=== PATIENT | female | born 1945 | race Caucasian/White ===

== ENCOUNTER 2020-08-04 08:15 | Outpatient (CLI) | payer MEDICARE, OTHER, SELFPAY | END 2020-08-04 08:16 | disposition home or self-care (01) | LOC: ANHCOVIDVC 08:15 | PROVIDERS: PCP Internal Medicine | DX: Z23 Encounter for immunization (principal) | CPT/HCPCS: 0001A; 91300 ==

== ENCOUNTER 2020-08-25 08:12 | Outpatient (CLI) | payer MEDICARE, OTHER, SELFPAY | END 2020-08-25 08:13 | LOC: ANHCOVIDVC 08:12 | PROVIDERS: PCP Internal Medicine | DX: Z23 Encounter for immunization (principal) | CPT/HCPCS: 0002A; 91300 ==

== ENCOUNTER 2022-08-14 10:45 | Outpatient (CLI) | payer MEDICARE, OTHER, SELFPAY ==
--- NOTE | ~2022-08-14 | XR_ITS ---
Lumbosacral Spine: AP and lateral views Clinical History: Pain Findings: The normal lordotic curve is maintained. The vertebral bodies and posterior elements are i ntact. The intervertebral disc spaces are preserved. Mild facet joint degenerative changes are prese nt throughout the lumbar spine. The sacroiliac joints are normally outlined. Impression: Facet joint degenerative change, as above. Reviewed, dictated and finalized at location M. Impression: Facet joint degenerative change, as above.
== END 2022-08-14 10:46 | disposition home or self-care (01) ==
PROVIDERS: PCP Internal Medicine; Visit Provider Internal Medicine
DX: M54.9 Dorsalgia, unspecified (principal)
CPT/HCPCS: 72100

== ENCOUNTER 2022-10-18 09:15 | Outpatient (CLI) | payer MEDICARE, OTHER, SELFPAY ==
--- NOTE | ~2022-10-18 | MR_ITS ---
MRI of the lumbar spine Clinical History: Back pain, radiculopathy Technique: Axial T2-weighted images, and sagittal T1-weighted, T2-weighted, and T2 fat-sat images wer e acquired. COMPARISON: 11/27/2005 Findings: There is no fracture or subluxation of the lumbar spine. Vertebral bodies maintain normal h eight and alignment. No suspicious bone marrow signal abnormality seen. At L1-L2, there is no disc bulge or herniation. There is minimal facet joint hypertrophy. No spinal c anal stenosis or neural foraminal narrowing. At L2-L3, there is no significant disc bulge or herniation. There is mild facet joint hypertrophy. No spinal canal stenosis or neural foraminal narrowing. At L3-L4, there is minimal disc bulge with mild facet arthropathy. No spinal canal stenosis or defini te neural foraminal narrowing. At L4-L5, there is disc bulge and facet arthropathy, with mild lateral recess stenosis, particularly on the left side. There is probable mild left neural foraminal narrowing and moderate right neural fo raminal narrowing. At L5-S1, there is mild disc bulge with moderate to advanced facet arthropathy. There is severe left neural foraminal narrowing. Right neural foramen preserved. No central canal stenosis. Paravertebral soft tissues are unremarkable. Impression: Severe left neural foraminal narrowing L5-S1. [id number] degenerative spondylosis at L4-L5, as detailed above. Reviewed, dictated and finalized at [facility]. Impression: Severe left neural foraminal narrowing L5-S1. [id number] degenerative spondylosis at L4-L5, as detailed above.
== END 2022-10-18 09:16 | disposition home or self-care (01) ==
PROVIDERS: PCP Internal Medicine; Visit Provider Internal Medicine
DX: M47.26 Other spondylosis with radiculopathy, lumbar region (principal)
CPT/HCPCS: 72148

== ENCOUNTER 2022-11-26 09:22 | Outpatient (CLI) | payer MEDICARE, OTHER, SELFPAY ==
--- NOTE | ~2022-11-26 | US_ITS ---
EXAMINATION: US pelvic complete w TV DATE: 11/26/2022 10:01 INDICATION: Uterine prolapse TECHNIQUE: Multiple transabdominal and endovaginal sonographic images of the pelvis were obtained. COMPARISON: None. FINDINGS: The uterus measures 7.1 x 3.3 x 2.1 cm. The endometrial complex measures 4 mm. There is a s mall amount of fluid in the endometrial canal of unclear significance. There is also a questionable s mall polyp of the endometrium. The ovaries are not visualized however no adnexal abnormality is seen. There is no free fluid in the pelvis. IMPRESSION: 1. Small amount of fluid and possible polyp in the endometrial canal. Reviewed, dictated and finalized at location L.
== END 2022-11-26 09:23 | disposition home or self-care (01) ==
PROVIDERS: PCP Internal Medicine; Visit Provider Nurse Practitioner Family
DX: N81.4 Uterovaginal prolapse, unspecified (principal)
CPT/HCPCS: 76830; 76856

== ENCOUNTER 2023-03-25 11:43 | Outpatient (CLI) | payer MEDICARE, OTHER, SELFPAY ==
--- NOTE | 2023-03-25 12:32 | ECG_ITS ---
Measurements Intervals [place] Rate: 70 P: 53 ME: 142 QRS: 1 QRSD: 90 T: 35 QT: 367 QTc: 396 Interpretive Statements SINUS RHYTHM BASELINE ARTIFACT NO PREVIOUS ECG AVAILABLE FOR COMPARISON Electronically Signed On 03-25-2023 19:58:06 CDT by Ava Buchanan M.D.
[2023-03-25 12:54] LABS: Basophils Absolute Auto 0.1 K/mm3 (0.0-0.1); Basophils Percent Auto 0.9 % (0.2-1.2); Eosinophils Absolute Auto 0.1 K/mm3 (0-0.3); Eosinophils Percent Auto 0.9 % (0-4.4); Hematocrit 41.3 % (37.0-47.0); Hemoglobin 12.9 g/dL (12.0-15.0); Immature Granulocyte Absolute 0.02 K/mm3 (0.00-0.031); Immature Granulocyte Percent A 0.3 % (0-0.5); Lymphocytes Absolute Auto 1.81 K/mm3 (0.9-3.2); Lymphocytes Percent Auto 26.6 % (18.3-44.2); Mean Corpuscular HGB Conc 31.2 g/dl (32-36); Mean Corpuscular Hemoglobin 29.3 pg (26-34); Mean Corpuscular Volume 93.7 fl (80-100); Mean Platelet Volume 9.4 fl (7.4-10.4); Monocytes Absolute Auto 0.8 K/mm3 (0.1-0.6); Monocytes Percent Auto 12.1 % (2.6-8.5); Neutrophils Percent Auto 59.2 % (45.5-73.1); Platelet Count Result 324 k/mm3 (150-375); Red Blood Count 4.41 M/mm3 (4.2-5.4); Red Cell Distribution Width 12.3 % (11.5-14.5); White Blood Count 6.8 K/mm3 (4.5-10.0)
[2023-03-25 13:08] LABS: Alanine Aminotransferase 16 U/L (6-35); Albumin Level 4.4 g/dL (3.5-5.1); Alkaline Phosphatase 85 U/L (38-126); Anion Gap 6 mmol/L (8-16); Aspartate Amino Transferase 21 U/L (14-36); Bilirubin,Total 0.6 mg/dL (0.2-1.3); Blood Urea Nitrogen 15 mg/dL (7-17); Calcium 9.8 mg/dL (8.4-10.2); Carbon Dioxide 31 mmol/L (22-30); Chloride 104 mmol/L (98-107); Estimated Glomerular Filt Rate > 60; Glucose 90 mg/dL (65-110); Potassium 4.2 mmol/L (3.4-5.0); Sodium 141 mmol/L (137-145)
[2023-03-25 13:39] LABS: INR 0.9; Partial Thromboplastin Time 23.4 SECONDS (22.3-36.8); Prothrombin Time 12.9 Seconds (11.1-14.7)
== END 2023-03-25 11:44 | disposition home or self-care (01) ==
LOC: ANHSURGERY 11:50
PROVIDERS: PCP Internal Medicine; Visit Provider Urology
DX: Z01.818 Encounter for other preprocedural examination (principal); N81.4 Uterovaginal prolapse, unspecified; I10 Essential (primary) hypertension
CPT/HCPCS: 36415; 80053; 85025; 85610; 85730; 86850; 86900; 86901; 93005

== ENCOUNTER 2023-04-07 01:07 | Day surgery (SDC) | payer MEDICARE, OTHER, SELFPAY ==
--- NOTE | 2023-03-25 11:33 | PC.NURSE ---
PRE-OP INSTRUCTIONS, PLEASE READ CAREFULLY Report to the Outpatient Waiting Room, entrance under the green pavilion located off [facility], at time _0600_ on date _04/07/23_. Planned Procedure Time: _0730_. PACK A SMALL OVERNIGHT BAG AND LEAVE IN THE CAR Time changes happen often and if your time is changed the preop area will call you the afternoon before. - You and your visitor will be asked to self-screen and do not enter if you have any COVID symptoms. - A mask is optional within the hospital at this time. -VISITING HOURS 8AM-8PM Patients may have clear liquids (water, carbonated beverages, clear teas, apple juice) until 3 hours prior to surgery (0430 AM) with a maximum of 20 ounces. - No food from midnight until time of surgery Take the following medications with a SIP of water the morning of surgery: _TYLENOL IF NEEDED_ DO NOT STOP ANY OF YOUR OTHER PRESCRIPTION MEDICATIONS PRIOR TO SURGERY ?EXCEPT THE FOLLOWING Medications to discontinue per ANESTHESIA - _VITAMINS 3 DAYS PRIOR TO SURGERY, DAY TO TAKE LAST DOSE 04/03/23_ Please no make-up, nail slovak, hairspray, perfume, deodorant, or body powder the day of surgery. No jewelry (including any body piercings) or valuables the day of surgery, leave them at home. Please take a shower or bath the night before, or the morning of, surgery with an antibacterial soap. Wear comfortable, loose fitting clothing. - Jewelry must be removed prior to entering the operating room. Rings and piercings that are not removed may be cut off. - The hospital will not accept responsibility for valuables. - Please leave all valuables, including medications, at home the day of surgery. If you are going home after surgery, a licensed driver lifter of sanitation truck must drive you home. - NO public transportation without another adult if you receive anesthesia. - We recommend that an adult stay with you for 24 hours following discharge. - We also recommend that you do not drive, make important decision, drink alcoholic beverages, or take any drugs that were not prescribed by your health care provider for at least 24 hours after your discharge time. Follow any additional instructions given to you from your surgeon. If you or anyone in your household have experienced Covid symptoms in the past week, please notify your surgeon or the nurse liaison at the phone number below for possible testing. Instructions given to _PATIENT_and asked if any additional questions and then verbalized understanding. Patient advised to call surgeon office or pre surgery nurse liaison [phone] if any additional questions.
[2023-03-25 12:09] VITALS: BP 152/70; PULSE 80; RESP 18; TEMP 37.2; O2SAT 100; BMI 22.8
--- NOTE | 2023-04-01 08:00 | PM.IMHP ---
H&P: HPI History of Present Illness Date/Time: 04/01/23 08:00 Chief Complaint: Pelvic prolapse Narrative: 77-year-old female is admitted for robotic hysteroscope for cervical hysterectomy and bilateral salpingo-oophorectomy as well as sacral colpopexy with Dr. Acuña. She is uterine prolapse. She denied use of pessary and opted for surgical repair. Risks and benefits reviewed including exclusive of aspiration gum transfusion perforation injury to bowel bladder ureters, or other internal organs with the need for open laparotomy. She received the ACOG handout entitled hysterectomy as well as the div and she handout. She had all questions answered and asked to proceed PMFSH Past Medical History Medical History Hypertension Family History Family History Mother Hypertension Family history of elevated blood lipids Sibling Patient's sister is in good health Patient's brother is Family history of alcoholism, Onset Age: 61 Father Patient's father is Social History Social History Smoking status: Never smoker Second hand tobacco smoke exposure: No Smoking end date: 06/02/72 Alcohol intake: never Substance use: never Substance use type: does not use Lack of Transportation: No Lack of Food: Never True Current Housing: I Have Housing Concerned About Future Housing: No Difficulty Paying Gas/Electric Bills: No Difficulty Paying for Meds: No Currently Unemployed: No Education: High School Diploma/GED Difficulty w/ Childcare or Family Care: No Living arrangements: with family Additional living arrangements comments: PT LIVES WITH & TAKES CARE OF 98 YR MOM Spiritual care concerns: No Meds Home Medications and Allergies Home Medications Medication Instructions Recorded Confirmed Type lisinopril 20 mg tablet 20 mg PO DAILY #90 tabs 09/26/22 03/25/23 Rx acetaminophen 650 mg 650 mg PO Q12H PAIN 03/25/23 03/25/23 History tablet,extended release ascorbic acid (vitamin C) 1,000 mg 1,000 mg PO DAILY 03/25/23 03/25/23 History tablet (Vitamin C) cholecalciferol (vitamin D3) 50 50 mcg PO DAILY 03/25/23 03/25/23 History mcg (2,000 unit) capsule cyanocobalamin (vitamin B-12) 1,000 mcg PO DAILY 03/25/23 03/25/23 History 1,000 mcg tablet Allergies Allergy/AdvReac Type Severity Reaction Status Date / Time No Known Allergies Allergy Verified 03/25/23 12:04 Exam Const: General: cooperative, healthy appearing and comfortable Nutritional Appearance: average body habitus Orientation/consciousness: oriented to person, oriented to place and oriented to time Resp: Effort & Inspection: normal respiratory effort Cardio: Rate: regular rate Rhythm: regular rhythm Heart sounds: S1 normal heart sound present and S2 normal heart sound present GI: Inspection: normal to inspection : External Female Exam: normal external appearance Speculum Exam - Vagina: normal appearance of the vagina Speculum Exam - Cervix: normal appearance of the cervix (Prolapse present) Bimanual exam- vagina & uterus: soft Bimanual Exam- Adnexa, other: normal adnexae Assessment and Plan Assessment and plan (1) Uterine prolapse: Code(s): N81.4 - Uterovaginal prolapse, unspecified Status: Acute Plan Robotic supracervical hysterectomy and bilateral salpingo-oophorectomy
--- NOTE | 2023-04-04 14:37 | WPDANESEPPF ---
Anes - Initial Pre Proc Eval Procedure: Operation Date: 04/07/23 07:30 Proposed Procedures p Robotic Sacrocolpopexy, - Marcos Acuña MD s Urethral Sling, - Marcos Acuña MD s Robotic Assisted Supracervical Hysterectomy With Bilateral Salpingo-Oophorectomy - Peter Rincon MD Date/Time: 04/04/23 14:37 Surgeon: Marcos Acuña MD Pre Op Diagnosis: uterovaginal prolapse, stress incontinence Patient Data Age: 77 Gender: F Height: 1.68 m Weight: 64.2 kg Last Vital Signs Temp 98.9 F 03/25/23 12:09 Pulse 80 03/25/23 12:09 Resp 18 03/25/23 12:09 BP 152/70 H 03/25/23 12:09 Pulse Ox 100 03/25/23 12:09 O2 Del Method Room Air 03/25/23 12:09 Allergies Allergy/AdvReac Type Severity Reaction Status Date / Time No Known Allergies Allergy Verified 04/07/23 06:01 Home Medications Medication Instructions Recorded Confirmed Type lisinopril 20 mg tablet 20 mg PO DAILY #90 tabs 09/26/22 04/07/23 Rx acetaminophen 650 mg 650 mg PO Q12H PAIN 03/25/23 04/07/23 History tablet,extended release ascorbic acid (vitamin C) 1,000 mg 1,000 mg PO DAILY 03/25/23 04/07/23 History tablet (Vitamin C) cholecalciferol (vitamin D3) 50 50 mcg PO DAILY 03/25/23 04/07/23 History mcg (2,000 unit) capsule cyanocobalamin (vitamin B-12) 1,000 mcg PO DAILY 03/25/23 04/07/23 History 1,000 mcg tablet Patient hx anesthesia problems: none Family hx anesthesia problems: none Results Review: All pre-operative results and documents have been reviewed as part of the pre-operative evaluation. [facility] Past Medical History Medical History Hypertension Family History Family History Mother Hypertension Family history of elevated blood lipids Sibling Patient's sister is in good health Patient's brother is Family history of alcoholism, Onset Age: 61 Father Patient's father is Social History Social History Smoking status: Never smoker Second hand tobacco smoke exposure: No Smoking end date: 06/02/72 Alcohol intake: never Substance use: never Substance use type: does not use Lack of Transportation: No Lack of Food: Never True Current Housing: I Have Housing Concerned About Future Housing: No Difficulty Paying Gas/Electric Bills: No Difficulty Paying for Meds: No Currently Unemployed: No Education: High School Diploma/GED Difficulty w/ Childcare or Family Care: No Living arrangements: with family Additional living arrangements comments: PT LIVES WITH & TAKES CARE OF 98 YR MOM Spiritual care concerns: No Anes - Eval Final PreProcedure Day of Procedure 04/04/23 14:37 Patient weight: normal Heart: regular rate and rhythm Lungs: clear to auscultation Airway: Mallampati scale class II Neurological: alert and oriented Last oral intake: >/= 8 hours ASA classification: II Emergent: no Anesthetic plan: proceed Anesthesia type and monitoring: general ETT and standard monitoring Results Review: All pre-operative results and documents have been reviewed as part of the pre-operative evaluation. Informed Consent: The patient's anesthetic plan and its attendant risks and benefits were discussed with the patient/family/POA. Questions were solicited and answers provided to the satisfaction of the patient/family/POA.
--- NOTE | 2023-04-06 09:18 | PM.IMHP ---
H&P: HPI History of Present Illness Date/Time: 04/06/23 09:18 Chief Complaint: surgical procedure Narrative: uterine prolapse and occult stress incontinence Review of Systems Review of Systems: All systems reviewed & are unremarkable except as noted in HPI and below PMFSH Past Medical History Medical History Hypertension Family History Family History Mother Hypertension Family history of elevated blood lipids Sibling Patient's sister is in good health Patient's brother is Family history of alcoholism, Onset Age: 61 Father Patient's father is Social History Social History Smoking status: Never smoker Second hand tobacco smoke exposure: No Smoking end date: 06/02/72 Alcohol intake: never Substance use: never Substance use type: does not use Lack of Transportation: No Lack of Food: Never True Current Housing: I Have Housing Concerned About Future Housing: No Difficulty Paying Gas/Electric Bills: No Difficulty Paying for Meds: No Currently Unemployed: No Education: High School Diploma/GED Difficulty w/ Childcare or Family Care: No Living arrangements: with family Additional living arrangements comments: PT LIVES WITH & TAKES CARE OF 98 YR MOM Spiritual care concerns: No Meds Home Medications and Allergies Home Medications Medication Instructions Recorded Confirmed Type lisinopril 20 mg tablet 20 mg PO DAILY #90 tabs 09/26/22 03/25/23 Rx acetaminophen 650 mg 650 mg PO Q12H PAIN 03/25/23 03/25/23 History tablet,extended release ascorbic acid (vitamin C) 1,000 mg 1,000 mg PO DAILY 03/25/23 03/25/23 History tablet (Vitamin C) cholecalciferol (vitamin D3) 50 50 mcg PO DAILY 03/25/23 03/25/23 History mcg (2,000 unit) capsule cyanocobalamin (vitamin B-12) 1,000 mcg PO DAILY 03/25/23 03/25/23 History 1,000 mcg tablet Allergies Allergy/AdvReac Type Severity Reaction Status Date / Time No Known Allergies Allergy Verified 03/25/23 12:04 Exam Narrative: anterior wall +4. Apical prolapse at +1 urethral mobility Assessment and Plan Assessment and plan (1) Uterine prolapse: Code(s): N81.4 - Uterovaginal prolapse, unspecified Status: Acute (2) PRAVEENA (stress urinary incontinence, female): Code(s): N39.3 - Stress incontinence (female) (male) Status: Acute Plan robotic colpopexy with urethral sling. Understands risks of bleeding, infection, recurrence, damage to surrounding organs, damage to the urinary tract, bowel injury, bowel obstruction, recurrent or persistent stress incontinence, postop voiding dysfunction requiring secondary procedures, hip and leg pain, mesh exposure. She agrees to proceed
[2023-04-07] VITALS (9 sets, daily range): BP systolic 129–161; BP diastolic 55–85; PULSE 68–97; RESP 10–18; TEMP 36.1–36.7; O2SAT 93–100
--- NOTE | 2023-04-07 06:03 | WPDHPUPDATE1 ---
History and Physical Update Update Date/Time: 04/07/23 06:03 History and Physical has been reviewed, including an updated exam of the patient. There are NO changes in the patient's condition. Risks, benefits, and alternatives have been discussed and questions answered. Patient agrees to proceed with procedure.
[2023-04-07] MEDS: LACTATED RINGERS 1,000 ML 30 ML IV CONT ×2 (06:35→10:16)
--- NOTE | 2023-04-07 07:13 | WPDHPUPDATE1 ---
History and Physical Update Update Date/Time: 04/07/23 07:13 History and Physical has been reviewed, including an updated exam of the patient. There are NO changes in the patient's condition. Risks, benefits, and alternatives have been discussed and questions answered. Patient agrees to proceed with procedure.
[2023-04-07] MEDS: ceFAZolin 2 GM/D5W 50 ML 2 GM/50 ML BAG IVPB (07:33)
[2023-04-07] MEDS: metroNIDAZOLE 500 MG/ISO 100ML 500 MG/100 ML BAG 100 MG IVPB ×2 (07:40→16:30)
--- NOTE | 2023-04-07 08:17 | P.OP_ITS ---
Procedure Note - Detailed Date of Procedure 04/07/23 Pre-op Diagnosis uterovaginal prolapse, stress incontinence Post-op Diagnosis Same Procedure Performed Robotic supracervical hysterectomy and bilateral salpingo-oophorectomy Surgeon Peter Rincon MD Anesthesia General Indications This is a 77-year-old female vaginal prolapse Findings Vaginal prolapse. Normal-appearing ovaries and tubes Description of Procedure Patient is prepped draped in the normal sterile fashion placed in dorsal lithotomy position. Under excellent general trach anesthesia weighted speculum placed posterior fornix vagina. Anterior lip of cervix grasped with single- tooth tenaculum. The Whiting's cannula inserted the cervix status single-tooth to be used later for uterine manipulation. A 16 Maori catheter was placed in the bladder weighted speculum was removed. Dr. Acuña proceeded to dock the robot. Once robot undocked. Attended the console. The left round ligament was grasped, burned, cut. Anteriorly bladder flap was formed by sharply dissecting the peritoneum across the uterine and cervix twitching it caudally away from the cervix uterus the opposite round ligament was clamped, burned, cut. Next the left infundibulopelvic structure was skeletonized to remove the ovary tube clamped, burned, cut and brought to the level of previously cut. In like fashion removing the right ovary and tube, the infundibulopelvic structure was skeletonized clamping burning cutting irregular this to the right round ligament. Next the cardinal broad ligaments on the left were skeletonized clamping burning cutting until the uterine vessels could be seen on the left. These were individually clamped, burned, cut. On the opposite side on the right, the r cardinal and broad ligaments were was skeletonized clamping bur raimunod cutting and bringing this to the uterine vessels on the right. These were individually clamped, burned, cut. Dr. Acuña began his procedure at that point please refer to his operative report. There were no complications to this point Estimated Blood Loss 5 Drains No Packing No Pathology Yes Complications No immediate complications Condition Stable Disposition No change
[2023-04-07] MEDS: BUPIVACAINE/EPINEPHRINE 0.5% 50 ML VIAL INFILTRATE (08:37)
--- NOTE | 2023-04-07 10:22 | W.PM.PROC2 ---
Procedure Note - Detailed Date of Procedure 04/07/23 Pre-op Diagnosis uterovaginal prolapse, stress incontinence, female perineal laxity Post-op Diagnosis Same Procedure Performed robotic assisted laparoscopic sacral colpopexy urethral sling perineal repair /perineoplasty cystoscopy Surgeon Marcos Acuña MD Anesthesia General Indications this is a woman with uterine prolapse, stress incontinence, and female perineal laxity. They present for surgery. They understand risks of bleeding, infection, damage to surrounding organs, damage to the bowel or urinary tract, diskitis, recurrence of prolapse, recurrent or persistent stress incontinence, vaginal or urinary tract mesh exposure, obstructive voiding requiring secondary procedure, hip and leg pain, dyspareunia, and other perioperative intraoperative and postoperative complications. They agreed to proceed. Findings See dictation Description of Procedure She was correctly identified. Informed consent is obtained. She was brought to the operating room. She was given general anesthesia. She was placed in the dorsal lithotomy position. All pressure points were padded. She was given appropriate perioperative antibiotics. A time-out was performed. I anesthetized the skin 3 fingerbreadths cephalad to the umbilicus. I incised the skin. I grasped the fascia with Alicia clamps. I entered the fascia sharply in a Hason type technique. I placed Vicryl sutures for later fascial closure. the midline trocar was placed. Under direct vision 2 additional trocars were placed in the right and left upper quadrant. She was placed in steep Trendelenburg. The robot was docked. I turned her over to her metallic yarn slitting machine operator for their portion of the procedure. That will be dictated in a separate op note. I then sat at the console. With a Sizer in the vagina I created a plane on the anterior and posterior vaginal wall for several cm taking great care not to injure the vagina bladder or rectum. I introduced the mesh into the abdomen. I sewed the anterior leaf of the mesh on the anterior vaginal wall and the posterior leaflet of mesh on the posterior vaginal wall with multiple sutures of 2 0 [place] taking great care not to go through and through. I reflected the colon laterally. I opened up the posterior peritoneum over the sacral promontory and carried this incision into the cul-de-sac. I freed up the edges for later retroperitonealization of the mesh. I located the anterior longitudinal ligament of the sacrum. It was cleaned off of all fatty tissues. I tensioned my mesh appropriately. I went to the bedside to perform a vaginal exam. There was good apical support without undue tension. I then sewed the proximal leaflet of mesh onto the anterior longitudinal ligament with several sutures of 2 0 [place]. I then used a 2 0 Monocryl to meticulously retroperitonealized all mesh. I allowed the colon to go back into its normal anatomic location. There is no signs of any impingement. The specimen was extracted. The abdomen was exited. Fascial sutures were closed. Two additional sutures were used to completely close the fascia. wounds were irrigated. Skin was closed with Monocryl as well as surgical glue. She was then repositioned and prepped for perineal surgery. I anesthetized the carlos alberto-shaped area of skin on the perineum. I removed this area of skin. I performed a classic perineal repair with 0 Vicryl suture. I used a 2 0 Vicryl to close the mucosa. There was excellent perineal support without undue narrowing of the vagina. I then marked out the inner thigh incisions. I anesthetized the skin and made those incisions. I then anesthetized the anterior vaginal wall over the mid urethra. I made a 1 cm incision. I dissected out laterally taking great care not to injure the urethra or the vaginal wall. I then passed the helical trocars 1st on the left than on the right. I did this from
--- NOTE | 2023-04-07 10:47 | SUR.PHASEI ---
1046: Simple mask removed.
[2023-04-07] MEDS: fentaNYL CITRATE INJ (*CRX) 100 MCG/2 ML VIAL 25 MCG IV PUSH ×2 (11:06→11:15)
[2023-04-07] MEDS: ONDANSETRON INJ 4 MG/2 ML VIAL IV PUSH ×2 (11:18→11:35)
[2023-04-07] MEDS: KCL 20 MEQ/D5/0.45% SOD CHL 1,000 ML 100 ML IV CONT (11:30)
[2023-04-07] MEDS: KETOROLAC 15 MG/ML VIAL (*BKC) IV PUSH (11:40)
[2023-04-07] MEDS: MORPHINE SULFATE (*CRX) 2 MG/ML INJ IV PUSH (12:00)
[2023-04-07] MEDS: diphenhydrAMINE HCl INJ 50 MG/ML VIAL 25 MG IV PUSH (12:05)
[2023-04-07] MEDS: ceFAZolin 1 GM/NS 50 ML 1 GM/50 ML BAG IVPB ×2 (15:30→23:08)
[2023-04-08] MEDS: metroNIDAZOLE 500 MG/ISO 100ML 500 MG/100 ML BAG 100 MG IVPB ×2 (00:03→08:00)
[2023-04-08 01:00] VITALS: BP 123/66; PULSE 85; RESP 16; TEMP 36.9; O2SAT 97
[2023-04-08 05:00] VITALS: BP 123/51; PULSE 86; RESP 18; TEMP 36.5; O2SAT 98
--- NOTE | 2023-04-08 06:42 | PM.GYNPNOP ---
[employer] - A/P Postoperative Procedures: Procedures Operation Date: 04/07/23 07:30 Actual Procedure Side Surgeon p Robotic Sacrocolpopexy, Marcos Acuña MD s Urethral Sling, Perineorrhaphy Marcos Acuña MD s Robotic Assisted Supracervical Hysterectomy With Bilateral Salpingo-Oophorectomy Pteer Rincno MD Postoperative day: 1 Postoperative status: doing well Postoperative plan: routine post-op care, see orders, ambulate, advance diet, voiding trials and discharge Time Spent With Patient Time: Total time spent is greater than 50% in coordination of care (as documented) at patient's floor/unit and/or counseling patient: Time with patient: less than 15 minutes [employer]IV[employer]- PN:Subj Post-Op Subjective Date/time seen: 04/08/23 06:42 Subjective: patient has no complaints, patient desires discharge, pain is well controlled and patient is tolerating oral intake Exam Const: General: cooperative, healthy appearing and comfortable Nutritional Appearance: average body habitus Orientation/consciousness: oriented to person, oriented to place and oriented to time HENMT: Head: normal to inspection Resp: Effort & Inspection: normal respiratory effort Cardio: Rate: regular rate Rhythm: regular rhythm Heart sounds: S1 normal heart sound present and S2 normal heart sound present GI: Inspection: normal to inspection and incision (cdi) [employer] - PN: Obj Data Vital Signs Vital Signs: Vital Signs - 24 hr 04/07/23 10:16 04/07/23 10:30 04/07/23 10:45 Temperature 97.0 F L Pulse Rate 70 70 68 Respiratory Rate 12 10 L 12 Blood Pressure 161/77 H 155/72 H 158/73 H Pulse Oximetry 100 100 100 Oxygen Delivery Simple Face Mask Simple Face Mask Simple Face Mask Oxygen Flow Rate 6 6 6 04/07/23 11:00 04/07/23 11:15 04/07/23 11:45 Temperature 97 F L Pulse Rate 70 79 75 Respiratory Rate 12 15 18 Blood Pressure 146/71 H 143/83 H 149/69 H Pulse Oximetry 96 93 98 Oxygen Delivery Room Air Room Air Oxygen Flow Rate 04/07/23 17:51 04/07/23 19:58 04/07/23 19:58 Temperature 98.1 F 97.8 F Pulse Rate 97 96 Respiratory Rate 16 16 Blood Pressure 129/55 L 146/85 H Pulse Oximetry 99 100 Oxygen Delivery Room Air Oxygen Flow Rate 04/08/23 01:00 04/08/23 01:00 04/08/23 05:00 Temperature 98.4 F 97.7 F Pulse Rate 85 86 Respiratory Rate 16 18 Blood Pressure 123/66 123/51 L Pulse Oximetry 97 98 Oxygen Delivery Room Air Oxygen Flow Rate 04/08/23 05:00 Temperature Pulse Rate Respiratory Rate Blood Pressure Pulse Oximetry Oxygen Delivery Room Air Oxygen Flow Rate Intake/Output Intake/Output: Intake & Output 04/06/23 04/06/23 04/07/23 04/08/23 00:59 23:59 23:59 23:59 Intake Total 2240 100 Output Total 500 200 Balance 1740 -100 Meds/Results Medications: Active Medications Generic Name Dose Route Start Last Admin Trade Name Freq PRN Reason Stop Dose Admin Acetaminophen 650 mg 04/07/23 07:22 Acetaminophen 325 Mg Tablet PO Q4H PRN Mild Pain (1-3) or Fever Hydrocodone Bitart/Acetaminophen 1 tab 04/07/23 07:22 Hydrocodone/Acetaminophen (*Crx) 5-325 Mg Tablet PO Q4H PRN Pain Rated 4-5 Cephalexin HCl 500 mg 04/08/23 13:00 Cephalexin 500 Mg Capsule PO QID LUCIAN Diphenhydramine HCl 25 mg 04/07/23 07:22 04/07/23 12:05 Diphenhydramine Hcl Inj 50 Mg/Ml Vial IV PUSH 12.5 mg Q6H PRN Administration Itching Docusate Sodium 100 mg 04/08/23 09:00 Docusate Sodium 100 Mg Capsule PO DAILY LUCIAN Enoxaparin Sodium 30 mg 04/08/23 09:00 Enoxaparin 30 Mg/0.3 Ml Syringe SUB-Q DAILY LUCIAN Potassium Chloride/Dextrose/Sod Cl 1,000 mls @ 100 mls/hr 04/07/23 07:25 04/07/23 23:09 Kcl 20 Meq/D5/0.45% Sod Chl IV CONT Not Given .Q10H LUCIAN Cefazolin Sodium 1 gm in 50 mls @ 100 mls/hr 04/07/23 15:00 04/07/23 23:38 Ancef 1 Gm/Ns 50 Ml IVPB 04/08/23 07:29 Infused Q8H [facility] Infusion Metronidazole
[2023-04-08] MEDS: ceFAZolin 1 GM/NS 50 ML 1 GM/50 ML BAG IVPB (07:00)
[2023-04-08 07:40] VITALS: BP 146/61; PULSE 73; RESP 18; TEMP 36.6; O2SAT 100
[2023-04-08] MEDS: DOCUSATE SODIUM 100 MG CAPSULE PO (08:00)
[2023-04-08] MEDS: ENOXAPARIN 30 MG/0.3 ML SYRINGE SUB-Q (08:00)
--- NOTE | 2023-04-08 08:15 | WPDANESPN ---
Anes - Prog Note Post-Op Date/Time: 04/08/23 08:15 Cardiovascular status: normal Respiratory status: normal Airway patency: baseline Mental status: baseline Post-Op hydration status: normal Vital Signs: Last Vital Signs Temp 36.5 C 04/08/23 05:00 Pulse 86 04/08/23 05:00 Resp 18 04/08/23 05:00 BP 123/51 L 04/08/23 05:00 Pulse Ox 98 04/08/23 05:00 O2 Del Method Room Air 04/08/23 05:00 O2 Flow Rate 6 04/07/23 10:45 Pain Score (VAS): 0 I/O: Intake & Output 04/07/23 04/08/23 04/08/23 23:59 07:59 15:59 Intake Total 1490 100 Output Total 450 200 Balance 1040 -100 Post-procedural complaints: none Patient Feedback: Patient satisfied with anesthetic care.
== END 2023-04-08 10:15 | disposition home or self-care (01) ==
LOC: ANHSURGERY 07:26 → ANHOB2 11:28
PROVIDERS: Obstetrics & Gynecology; PCP Internal Medicine; Visit Provider Urology
PROC: (CPT 57425; principal; 2023-04-07 07:30)
PROC: (CPT 57288; 2023-04-07 07:30)
PROC: (CPT 58542; 2023-04-07 07:30)
DX: N81.4 Uterovaginal prolapse, unspecified (principal); N93.9 Abnormal uterine and vaginal bleeding, unspecified; N80.03 Adenomyosis of the uterus; N83.8 Other noninflammatory disorders of ovary, fallopian tube and broad ligament; N80.103 Endometriosis of bilateral ovaries, unspecified depth; I10 Essential (primary) hypertension
CPT/HCPCS: 57288; 57425; 58542; S2900 ×2; 88307; 99199; A9270; C1771; C1781; J0690; J1100; J1170; J1200; J1650; J1836; J1885; J2250; J2270; J2405; J2704; J3010; J3480; J7030; J7120